=== PATIENT | female | born 1965 ===

== ENCOUNTER 2021-08-10 09:30 | Emergency (ER) | payer OTHER ==
[~2021-08-10] VITALS: Ht 172.7 cm; Wt 72.6 kg
== END 2021-08-10 12:45 | disposition home or self-care (01) ==
LOC: ER1 09:30
DX: U07.1 COVID-19 (principal); Z23 Encounter for immunization; I25.10 Atherosclerotic heart disease of native coronary artery without angina pectoris; Z90.710 Acquired absence of both cervix and uterus
CPT/HCPCS: 71045; 99283; M0243